=== PATIENT | female | born 2000 | race Caucasian/White ===

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

== ENCOUNTER 2021-11-08 17:47 | Emergency (ER) | payer OTHER | END 2021-11-08 20:30 | disposition left against medical advice (07) | LOC: ER 17:49 | DX: N89.8 Other specified noninflammatory disorders of vagina (principal); Z53.21 Procedure and treatment not carried out due to patient leaving prior to being seen by health care provider ==